=== PATIENT | male | born 1955 | race Caucasian/White ===

== ENCOUNTER 2021-07-21 16:29 | Observation (INO) ==
[2021-07-21] MEDS ORDERED: DILTIAZEM 50 MG/10 ML VIAL IV STA ×2 (19:08→20:16)
[2021-07-21 19:21] LABS: Albumin 4.1 G/DL (3.4-5.0); Bilirubin,Total 0.4 MG/DL (0.20-1.00); Calcium 9.7 MG/DL (8.5-10.1); Osmolality,Calculated 282.7 MOS/KG (273-304); Potassium 4.3 MMOL/L (3.5-5.1); Total Protein 7.8 G/DL (6.4-8.2)
[2021-07-21 19:28] LABS: Free T4 (Free Thyroxine) 0.97 NG/DL (0.76-1.46); Thyroid Stimulating Hormone 3.24 uIU/ml (0.358-3.74)
[2021-07-21 19:59] LABS: Basophils # 0.1 10*3/uL (0.0-0.2); Basophils % 0.6 % (0.0-0.8); Eosinophils # 0.1 10*3/uL (0.0-0.87); Eosinophils % 0.7 % (0.00-10.9); Hematocrit 43.9 VOL% (42.0-52.0); Immature Granulocytes % 0.7 %; Immature Granulocytes Absolute 0.06 #; Lymphocytes # 1.7 10*3/uL (1.4-4.0); Lymphocytes % 19.3 % (21.2-54.2); Mean Corpuscular HGB Conc 34.2 GM/DL (32-36); Mean Corpuscular Volume 94.2 FL (87-102); Mean Platelet Volume 9.8 FL (9.6-12.0); Monocytes % 7.1 % (1.7-12.7); Neutrophils % 71.6 % (38.7-73.9); Platelet Count 282 T/CUMM (130-400); Red Blood Count 4.66 MC/CUMM (3.8-5.5); Red Cell Distribution Width 13.3 % (9.3-17.3); White Blood Count 8.9 T/CUMM (4-12)
[2021-07-21] MEDS ORDERED: ENOXAPARIN 100 MG/ML SYRINGE SUBCUT STA (20:33)
[2021-07-21] MEDS ORDERED: DILTIAZEM INJ 100 MG in SODIUM CHLORIDE 0.9% 100 ML IV SCH (21:00)
[2021-07-21] MEDS ORDERED: ACETAMINOPHEN 325 MG TABLET PO PRN (21:19)
[2021-07-21] MEDS ORDERED: ONDANSETRON 4 MG/2 ML VIAL IV PRN (21:19)
[2021-07-21] MEDS ORDERED: SODIUM CHLORIDE 0.9% 500 ML IV ONE (21:23)
[2021-07-22] MEDS ORDERED: MAGNESIUM SULF RIDER 2 GM/50 ML PREMIX IV ONE (03:20)
[2021-07-22 04:59] LABS: Basophils % 0.5 % (0.0-0.8); Eosinophils # 0.1 10*3/uL (0.0-0.87); Eosinophils % 1.3 % (0.00-10.9); Hematocrit 41.8 VOL% (42.0-52.0); Hemoglobin 14.3 GM/DL (14.0-18.0); Immature Granulocytes % 0.6 %; Immature Granulocytes Absolute 0.05 #; Lymphocytes # 2.3 10*3/uL (1.4-4.0); Lymphocytes % 29.5 % (21.2-54.2); Mean Corpuscular HGB Conc 34.2 GM/DL (32-36); Mean Corpuscular Volume 94.6 FL (87-102); Mean Platelet Volume 9.9 FL (9.6-12.0); Monocytes % 9.9 % (1.7-12.7); Neutrophils % 58.2 % (38.7-73.9); Platelet Count 284 T/CUMM (130-400); Red Blood Count 4.42 MC/CUMM (3.8-5.5); Red Cell Distribution Width 13.2 % (9.3-17.3); White Blood Count 7.7 T/CUMM (4-12)
[2021-07-22 05:19] LABS: Calcium 8.9 MG/DL (8.5-10.1); Osmolality,Calculated 286.3 MOS/KG (273-304); Potassium 3.8 MMOL/L (3.5-5.1); Risk Ratio 4.29; VLDL Cholesterol 38.2 MG/DL
[2021-07-22] MEDS ORDERED: SODIUM CHLORIDE 0.65% NASAL SPRAY 45 ML BOTTLE BOTH NARES PRN (07:52)
[2021-07-22] MEDS ORDERED: ENOXAPARIN 100 MG/ML SYRINGE SUBCUT SCH (08:00)
[2021-07-22] MEDS ORDERED: FLUTICASONE 50 MCG NASAL SPRAY 16 GM BOTTLE BOTH NARES SCH (09:00)
[2021-07-22] MEDS ORDERED: PANTOPRAZOLE 40 MG TABLET PO SCH (09:00)
[2021-07-22] MEDS: MAGNESIUM OXIDE 400 MG TABLET PO SCH ×2 (09:03→22:01)
[2021-07-22] MEDS: allopurinoL 300 MG TABLET PO SCH (09:03)
[2021-07-22] MEDS: APIXABAN 5 MG TABLET PO SCH ×2 (09:03→22:02)
[2021-07-22] MEDS: SIMVASTATIN 10 MG TABLET PO SCH (09:03)
[2021-07-22] MEDS: cloNIDine 0.1 MG TABLET PO SCH ×3 (09:03→22:01)
[2021-07-22] MEDS: METOPROLOL TARTRATE 25 MG TABLET PO SCH ×2 (09:03→22:02)
[2021-07-23 07:57] LABS: Osmolality,Calculated 283.4 MOS/KG (273-304); Potassium 4.2 MMOL/L (3.5-5.1)
[2021-07-23] MEDS ORDERED: cloNIDine 0.1 MG TABLET PO SCH ×2 (09:00)
[2021-07-23] MEDS ORDERED: VALSARTAN 80 MG TABLET PO SCH (09:00)
[2021-07-23] MEDS ORDERED: METOPROLOL TARTRATE 50 MG TABLET PO SCH (09:00)
[2021-07-23] MEDS: allopurinoL 300 MG TABLET PO SCH (09:17)
[2021-07-23] MEDS: SIMVASTATIN 10 MG TABLET PO SCH (09:17)
[2021-07-23] MEDS: MAGNESIUM OXIDE 400 MG TABLET PO SCH (09:17)
[2021-07-23] MEDS: APIXABAN 5 MG TABLET PO SCH (09:18)
[2021-07-23 12:31] VITALS: BP 102/72
== END 2021-07-23 15:53 | disposition home or self-care (01) ==
LOC: N.ED 16:29 → N.EDINP 16:29 → N.TELES 23:41
PROVIDERS: ADMIT Internal Medicine Geriatric Medicine; ATTEND Internal Medicine Geriatric Medicine